=== PATIENT | female | born 1950 | race Caucasian/White ===

== ENCOUNTER → 2018-08-04 | Outpatient (CLI) | payer BC ==
--- NOTE | 2018-08-04 16:03 | Diagnostic Imaging Report ---
EXAM: CT Chest without contrast INDICATION: Chronic cough. COMPARISON: None TECHNIQUE: Chest was scanned utilizing a multidetector helical scanner from the lung apex through the level of the adrenal glands without administration of IV contrast. Coronal and sagittal reformations were obtained. Routine protocol was performed. RADIATION DOSE: Total DLP: 463.4 mGy*cm Dose modulation, iterative reconstruction, and/or weight based adjustment of the mA/kV was utilized to reduce the radiation dose to as low as reasonably achievable. COMPLICATIONS: None FINDINGS: LINES/ TUBES: None. LUNGS AND AIRWAYS: The central airways are patent. There is diffuse mild bronchial wall thickening. There are innumerable bilateral groundglass nodules, predominantly in a centrilobular distribution, most pronounced in the upper lungs. There is bilateral mosaic attenuation. There are bilateral nodular opacities, for example an 8 mm left upper lobe solid nodule on series 3, image 20, an 8 mm nodule in the left lower lobe on image 43, a 6 mm nodule in the right lower lobe on image 81, a 7 mm nodule in the right middle lobe on image 60, and a 10 mm nodule in the right upper lobe on image 30. Scattered subpleural nodular opacities, most pronounced in the right lower lobe. PLEURA: The pleural spaces are clear. HEART AND MEDIASTINUM: The thyroid gland is normal. No mediastinal, hilar or axillary lymphadenopathy. No cardiomegaly or pericardial effusion. Scattered atherosclerotic changes within the coronary arteries and thoracic aorta. UPPER ABDOMEN: Limited non-contrast views of the upper abdomen. Moderate hiatal hernia. Status post cholecystectomy. BONES: No acute osseous amount he. No suspicious lytic or blastic lesions. Degenerative changes of the visualized spine. Partially seen lower thoracic and lumbar spine fixation hardware and spinal stimulator device. SOFT TISSUES: Unremarkable. IMPRESSION: Bilateral centrilobular groundglass nodules with bilateral nodules which measure up to 10 mm. Associated mosaic attenuation which may reflect air trapping. Findings likely reflect a chronic infectious process given the distribution of nodularity. Suggest follow-up high resolution chest CT (interstitial lung disease protocol) in 3 months. Signed by: Dr. Corrie Arreaga MD on 08/04/2018 4:00 PM
== END ==
LOC: CT 13:32
PROVIDERS: ATTEND Family Medicine
DX: R05 Cough (principal)
CPT/HCPCS: 71250

== ENCOUNTER → 2018-12-08 | Outpatient (CLI) | payer BC ==
--- NOTE | 2018-12-08 11:25 | Diagnostic Imaging Report ---
Exam: CT chest next Comparison: August 04, 2018 Clinical history: Cough, shortness of breath Technique: Helical images of the chest were obtained without contrast DOSE REDUCTION: The exams was performed according to the departmental dose-optimization program which includes automated exposure control, adjustment of the mA and/or kV according to patient size and/or use of iterative reconstruction technique. Findings: Peripheral reticular nodular changes as well as patchy groundglass opacities are again noted without significant interval changes. This is likely chronic in nature and may represent postinflammatory changes. A 7 mm nodular opacity with ill-defined border is again noted in the left upper lobe on series 3 image 18. A 7.1 mm ill-defined nodular density is also noted along series 3 image 41. These nodules are unchanged to the prior study. The tracheobronchial tree is clear. The cardiac size is within normal limits. The great vessels are normal in caliber and orientation. There is no evidence of mediastinal or hilar lymphadenopathy. A moderate-sized hiatal hernia is visualized. Otherwise, the visualized upper abdominal solid organs are unremarkable. The patient is status post lower thoracic spine fusion with postoperative changes. Impression: 1. Bilateral reticular nodular changes with patchy groundglass opacities without significant interval changes likely chronic in nature. This may represent post inflammatory changes. 2. Stable appearing pulmonary nodules. Signed by: Dr. Je Stokes MD on 12/08/2018 11:22 AM
== END ==
LOC: CT 09:33
PROVIDERS: ATTEND Internal Medicine Pulmonary Disease
DX: J98.4 Other disorders of lung (principal)
CPT/HCPCS: 71250

== ENCOUNTER → 2021-09-05 | Outpatient (CLI) | payer BC ==
[2021-09-05 17:48] LABS: CREATININE, SERUM 0.82 mg/dL (0.57-1.11)
== END ==
LOC: CT 16:57
PROVIDERS: ATTEND Internal Medicine Pulmonary Disease
DX: J84.112 Idiopathic pulmonary fibrosis (principal)
CPT/HCPCS: 36415; 71260; 82565; 84520

== ENCOUNTER → 2022-01-28 | Outpatient (CLI) | payer BC | LOC: CT 13:59 | PROVIDERS: ATTEND Internal Medicine Pulmonary Disease | DX: R91.1 Solitary pulmonary nodule (principal) | CPT/HCPCS: 71250 ==

== ENCOUNTER → 2022-05-27 | Outpatient (CLI) | payer BC | LOC: CT 13:59 | PROVIDERS: ATTEND Internal Medicine Pulmonary Disease | DX: J84.112 Idiopathic pulmonary fibrosis (principal) | CPT/HCPCS: 71250 ==

== ENCOUNTER → 2023-04-29 | Outpatient (REF) | payer OTHER | LOC: CT 13:48 | PROVIDERS: ATTEND Internal Medicine Pulmonary Disease | DX: A31.2 Disseminated mycobacterium avium-intracellulare complex (DMAC) (principal) | CPT/HCPCS: 71250 ==

== ENCOUNTER → 2024-05-18 | Outpatient (REF) | payer BC | LOC: CT 12:14 | PROVIDERS: ATTEND Internal Medicine Pulmonary Disease | DX: J84.112 Idiopathic pulmonary fibrosis (principal) | CPT/HCPCS: 71250 ==